=== PATIENT | female | born 1940 | race Two or more races ===

== ENCOUNTER 2022-09-29 07:00 | Outpatient (CLI) | payer OTHER ==
[2022-09-29] MEDS ORDERED: VASOTEC5 MG (11:45)
[2022-09-29] MEDS ORDERED: JANTOVEN5 MG (11:45)
[2022-09-29] MEDS ORDERED: DONNATAL TABL16.2 MG (11:45)
[2022-09-29] MEDS ORDERED: SIMVASTATIN5 MG (11:45)
[2022-09-29] MEDS ORDERED: BONIVA150 MG (11:46)
== END 2022-09-29 07:14 | disposition home or self-care (01) ==
LOC: LAB 07:00
PROVIDERS: ATTEND Surgery
DX: D37.4 Neoplasm of uncertain behavior of colon (principal); R93.5 Abnormal findings on diagnostic imaging of other abdominal regions, including retroperitoneum; Z03.818 Encounter for observation for suspected exposure to other biological agents ruled out

== ENCOUNTER 2022-09-29 10:54 | Inpatient (IN) | payer OTHER ==
[~2022-09-29] VITALS: Ht 152.4 cm; Wt 45.4 kg
--- NOTE | 2022-09-29 11:44 | NUR ---
SE RECIBE FEMINA ALERTA Y ORIENTADA POR SHANNAN ESFERAS, AMBULANDO. REFIERE QUE LA LLAMARON HOY EN LA MANANA DEL LABORATORIO QUE TENIA LA HEMOGLOBINA BAJA ADINA NO RECUERDA CUANTO.
[2022-09-29] MEDS ORDERED: VASOTEC5 MG (11:45)
[2022-09-29] MEDS ORDERED: JANTOVEN5 MG (11:45)
[2022-09-29] MEDS ORDERED: SIMVASTATIN5 MG (11:45)
[2022-09-29] MEDS ORDERED: DONNATAL TABL16.2 MG (11:45)
[2022-09-29] MEDS ORDERED: BONIVA150 MG (11:46)
--- NOTE | 2022-09-29 13:23 | NUR ---
SE EJECUTA ORDEN MEDIDA DR. KRUEGER, SE MISTER MATHIS LARRY MUESTRAS PARA ENVIAR A BANCO DE MARILU, SE HABLA CON ASHAO, QUIEN REFIERE QUE PTE NO TIENE RECORD, SE ARJUN TUBOS PILOTOS Y SE BAJAN A BANCO MDE MARILU. SE ARJUN CANALIZACIONES POR MISTER MATHIS RN.SE ORIENTA A PTE Y FAMILIAR SOBRE TRATAMIENTO ORDENADO.
--- NOTE | 2022-09-29 15:14 | NUR ---
PTE ALERTA Y ORIENTADA X 3 ESFERAS,EN JORDAN CON BARANDAS ELEVADAS,EN COMPANIA DE FAMILIAR QUIEN LE YSABEL ALIMENTOS Y TOLERA,NO PRESENTA DIFICULTAD RESP NI DOLOR.AREA DE VENOPUNCION PATENTE Y HOWARD DE EDEMA CON HL.PENDIENTE A TRANSFUNDIR 2 UNIDADES DE PRCB FRACC NO DISPONIBLES AL MOMENTO.PENDIENTE EVALUACION DE DR RIVERA.
== END 2022-10-07 16:41 | disposition home or self-care (01) | DRG 803 ==
LOC: ER 10:54 → MEDJ 20:17 → SURH 20:17 → MEDJ 09-30 12:57 → SURH 10-04 12:15
PROVIDERS: Surgery; ADMIT Internal Medicine; ATTEND Internal Medicine
PROC: 30233N1 Transfusion of Nonautologous Red Blood Cells into Peripheral Vein, Percutaneous Approach (ICD-10-PCS; 2022-09-30)
PROC: 0DBH8ZX Excision of Cecum, Via Natural or Artificial Opening Endoscopic, Diagnostic (ICD-10-PCS; 2022-10-02)
PROC: BW24YZZ Computerized Tomography (CT Scan) of Chest and Abdomen using Other Contrast (ICD-10-PCS; 2022-10-02)
PROC: 0DTF0ZZ Resection of Right Large Intestine, Open Approach (ICD-10-PCS; 2022-10-04)
PROC: 07BB0ZZ Excision of Mesenteric Lymphatic, Open Approach (ICD-10-PCS; principal; 2022-10-04 08:00)
DX: D64.9 Anemia, unspecified (principal); K62.5 Hemorrhage of anus and rectum; K57.30 Diverticulosis of large intestine without perforation or abscess without bleeding; K64.8 Other hemorrhoids; R59.0 Localized enlarged lymph nodes; E87.6 Hypokalemia; Z20.822 Contact with and (suspected) exposure to COVID-19; Z53.31 Laparoscopic surgical procedure converted to open procedure